=== PATIENT | male | born 1940 | race Caucasian/White ===

== ENCOUNTER 2018-01-26 12:05 | Inpatient (IN) | payer OTHER, BC ==
[~2018-01-26] VITALS: Ht 177.8 cm; Wt 78.6 kg
[~2018-01-26 12:05] MED LIST: ATENOLOL25 MG PO; ATORVASTATIN CA10 MG PO; AVINZA60 MG PO; CARDIZEM CD180 MG PO; CARTIA XT120 MG PO; CIALIS20 MG PO; CLOPIDOGREL75 MG PO; CRANBERRY PLUS1 EACH PO; DIGITEK250 MC2 PO; DURICEF500 MG PO; ELIQUIS5 MG PO; ELOCON 0.1% CRE15 GM TP; ENDOCET 5-3251 EACH PO; FISH OIL CONC1 EACH PO; GENTLE LAXATIVE5 M1 PO; KADIAN60 MG PO; KENALOG,ARISTOC80 GM TP; LAXATIVE5 M1 PO; LIPITOR10 MG PO; MINOCYCLINE HC100 M1 PO; MIRALAX255 GM PO; NEXIUM40 MG PO; PROBIOTIC & AC1 EACH PO; PROMETHAZINE V240 ML PO; QUININE SULFAT324 MG PO; REFRESH TEARS15 ML BOTH EYES; STOOL SOFTENER100 M1 PO; STOOL SOFTENER100 MG PO; SYNALAR 0.025%60 GM TP; TENORMIN25 MG PO; TRIAMCINOLONE A15 GM TP; VALIUM5 MG PO; VITAMIN D32000 UNI1 PO
[2018-01-26 12:50] LABS: BASOPHIL (%) 0.4 % (0-1); BASOPHIL COUNT 0.1 K/uL (0-0.1); EOSINOPHIL (%) 0.2 % (0-5); HEMATOCRIT 37.2 % (38.0-50.0); HEMOGLOBIN 13.1 G/DL (12.5-16.6); IMMATURE GRANULOCYTE (%) 0.9 % (0.0-0.7); LYMPHOCYTE (%) 6.2 % (15-42); LYMPHOCYTE COUNT 0.8 K/uL (1.0-2.8); MCH 33.7 PG (29.0-34.0); MCHC 35.2 G/DL (30.0-36.0); MCV 95.6 FL (86-99); MONOCYTE (%) 8.5 % (3-12); NEUTROPHIL (%) 83.8 % (45-76); NEUTROPHIL COUNT 10.3 K/uL (1.8-6.4); PLATELET COUNT 192 K/uL (156-360); RBC DIS.WIDTH-CV 13.7 % (11.8-14.6); RBC DIS.WIDTH-SD 47.6 % (39-53); RED BLOOD COUNT 3.89 M/uL (4.00-5.50); WHITE BLOOD COUNT 12.3 K/uL (4.1-10.2)
[2018-01-26 12:51] LABS: PCO2 33 mm Hg (35-45); PO2 75 mm Hg (80-100); pH 7.44 (7.35-7.45)
[2018-01-26 12:52] LABS: BASE EXCESS -1.1 mEq/L (-3 to +3); BICARBONATE 22.4 mEq/L (22-26); CARBOXY HGB 3.8 % (0-5); COMMENTS - BLOOD GASES A+C+; DEVICE NRBR; FI02 100 %; MECHANICAL RATE 18 resp/min; O2 FLOW 15 L/MIN; SITE RR
[2018-01-26 12:58] LABS: CHLORIDE 102 mEq/L (99-109); POTASSIUM 4.7 mEq/L (3.7-5.4); SODIUM 135 mEq/L (136-147)
[2018-01-26 13:00] LABS: GLUCOSE 135 mg/dL (70-99)
[2018-01-26 13:04] LABS: CREATININE 1.1 mg/dL (0.6-1.3); GFR ESTIMATE (CALCULATED) > 59 mL/min/ (58.99-99999); UREA NITROGEN (BUN) 29 mg/dL (9-23)
[2018-01-26 13:10] LABS: TROP-I INTERPRETATION NEGATIVE
[2018-01-26] MEDS ORDERED: TYLENOL EXTRA500 MG PO (14:36)
[2018-01-26] MEDS ORDERED: LASIX40 MG PO (14:37)
[2018-01-26] MEDS ORDERED: SYNTHROID50 MCG PO (14:37)
[2018-01-26] MEDS ORDERED: CORDARONE200 MG PO (14:37)
[2018-01-26] MEDS ORDERED: BENADRYL ALLERG25 MG PO (14:39)
[2018-01-26] MEDS ORDERED: APRODINE TABLE1 EACH PO (14:39)
[2018-01-26] MEDS ORDERED: CERAVE453 GM TP (14:40)
[2018-01-26 15:15] VITALS: BP 114/63
[2018-01-26 15:26] VITALS: BP 114/63
[2018-01-26 19:09] LABS: TROP-I INTERPRETATION NEGATIVE; TROPONIN-I 0.08 ng/mL (0.0-0.30)
[2018-01-26 19:46] VITALS: BP 106/64
[2018-01-26 23:10] VITALS: BP 96/55
[2018-01-27 04:05] VITALS: BP 92/55
[2018-01-27 07:46] VITALS: BP 99/55
[2018-01-27 09:25] LABS: PCO2 35 mm Hg (35-45); PO2 34 mm Hg (80-100)
[2018-01-27 09:26] LABS: O2 SATURATION (CALCULATED) 70.8 % (95-99)
[2018-01-27 09:27] LABS: BASE EXCESS 4.2 mEq/L (-3 to +3); BICARBONATE 27.3 mEq/L (22-26); CARBOXY HGB 3.2 % (0-5); METHEMOGLOBIN 1.1 % (0-1.5)
[2018-01-27 09:28] LABS: COMMENTS - BLOOD GASES A+C+; DEVICE HFNC; O2 FLOW 15 L/MIN; SITE RR; TOTAL RESP RATE 22 resp/min
[2018-01-27 12:21] VITALS: BP 94/57
[2018-01-27 16:56] VITALS: BP 97/59
[2018-01-27 21:02] VITALS: BP 97/57
[2018-01-28 01:08] VITALS: BP 99/58
[2018-01-28 05:16] VITALS: BP 107/56
[2018-01-28 05:52] LABS: BASOPHIL (%) 0.1 % (0-1); EOSINOPHIL (%) 0 % (0-5); HEMATOCRIT 39.3 % (38.0-50.0); HEMOGLOBIN 13.5 G/DL (12.5-16.6); IMMATURE GRANULOCYTE (%) 0.6 % (0.0-0.7); LYMPHOCYTE (%) 5.2 % (15-42); LYMPHOCYTE COUNT 0.8 K/uL (1.0-2.8); MCH 32.5 PG (29.0-34.0); MCHC 34.4 G/DL (30.0-36.0); MCV 94.7 FL (86-99); MONOCYTE (%) 2.7 % (3-12); MONOCYTE COUNT 0.4 K/uL (0-0.8); NEUTROPHIL (%) 91.4 % (45-76); NEUTROPHIL COUNT 14.6 K/uL (1.8-6.4); PLATELET COUNT 227 K/uL (156-360); RBC DIS.WIDTH-CV 13.2 % (11.8-14.6); RBC DIS.WIDTH-SD 45.7 % (39-53); RED BLOOD COUNT 4.15 M/uL (4.00-5.50); WHITE BLOOD COUNT 15.9 K/uL (4.1-10.2)
[2018-01-28 06:18] LABS: CHLORIDE 95 MEQ/L (99-109); CREATININE 0.9 MG/DL (0.6-1.3); GFR ESTIMATE (CALCULATED) > 59 mL/min/ (58.99-99999); GLUCOSE 162 mg/dL (70-99); POTASSIUM 4.3 MEQ/L (3.7-5.4); SODIUM 133 MEQ/L (136-147); UREA NITROGEN (BUN) 34 mg/dL (9-23)
[2018-01-28 07:13] VITALS: BP 105/67
[2018-01-28 11:45] VITALS: BP 95/58
[2018-01-28 15:27] VITALS: BP 119/74
[2018-01-28 21:28] VITALS: BP 107/82
[2018-01-29 00:29] VITALS: BP 104/62
[2018-01-29 05:33] VITALS: BP 109/62
[2018-01-29 05:39] LABS: BASOPHIL (%) 0.1 % (0-1); EOSINOPHIL (%) 0 % (0-5); HEMOGLOBIN 13.1 G/DL (12.5-16.6); IMMATURE GRANULOCYTE (%) 1.7 % (0.0-0.7); LYMPHOCYTE COUNT 0.5 K/uL (1.0-2.8); MCH 32.6 PG (29.0-34.0); MCHC 34.5 G/DL (30.0-36.0); MCV 94.5 FL (86-99); MONOCYTE (%) 3.8 % (3-12); MONOCYTE COUNT 0.9 K/uL (0-0.8); NEUTROPHIL (%) 92.4 % (45-76); NEUTROPHIL COUNT 20.4 K/uL (1.8-6.4); PLATELET COUNT 183 K/uL (156-360); RBC DIS.WIDTH-CV 13.2 % (11.8-14.6); RBC DIS.WIDTH-SD 45.8 % (39-53); RED BLOOD COUNT 4.02 M/uL (4.00-5.50); WHITE BLOOD COUNT 22.1 K/uL (4.1-10.2)
[2018-01-29 06:05] LABS: CHLORIDE 96 MEQ/L (99-109); CREATININE 0.7 MG/DL (0.6-1.3); GFR ESTIMATE (CALCULATED) > 59 mL/min/ (58.99-99999); GLUCOSE 164 mg/dL (70-99); POTASSIUM 4.2 MEQ/L (3.7-5.4); SODIUM 133 MEQ/L (136-147); UREA NITROGEN (BUN) 35 mg/dL (9-23)
[2018-01-29 07:06] VITALS: BP 100/56
[2018-01-29 11:22] VITALS: BP 102/63
[2018-01-29 20:57] VITALS: BP 105/68
[2018-01-30] VITALS (14 sets, daily range): BP systolic 82–128; BP diastolic 54–94
[2018-01-30 05:30] LABS: BASOPHIL (%) 0.1 % (0-1); EOSINOPHIL (%) 0 % (0-5); HEMATOCRIT 36.2 % (38.0-50.0); HEMOGLOBIN 12.4 G/DL (12.5-16.6); LYMPHOCYTE (%) 2.3 % (15-42); LYMPHOCYTE COUNT 0.4 K/uL (1.0-2.8); MCH 32.6 PG (29.0-34.0); MCHC 34.3 G/DL (30.0-36.0); MCV 95.3 FL (86-99); MONOCYTE (%) 3.5 % (3-12); MONOCYTE COUNT 0.7 K/uL (0-0.8); NEUTROPHIL (%) 93.1 % (45-76); RBC DIS.WIDTH-CV 13.8 % (11.8-14.6); RBC DIS.WIDTH-SD 47.8 % (39-53); WHITE BLOOD COUNT 18.3 K/uL (4.1-10.2)
[2018-01-30 05:40] LABS: CHLORIDE 96 MEQ/L (99-109); CREATININE 0.8 MG/DL (0.6-1.3); GFR ESTIMATE (CALCULATED) > 59 mL/min/ (58.99-99999); GLUCOSE 171 mg/dL (70-99); POTASSIUM 4.3 MEQ/L (3.7-5.4); SODIUM 134 MEQ/L (136-147); UREA NITROGEN (BUN) 34 mg/dL (9-23)
[2018-01-30 05:42] LABS: PLAT.SUFFICIENCY DECREASED
[2018-01-30 05:50] LABS: PLATELET COUNT 125 K/uL (156-360)
[2018-01-30 14:57] LABS: HIGH-SENS C-REACTIVE PROTEIN > 8.00 MG/DL (0.02-0.20)
[2018-01-31] VITALS (24 sets, daily range): BP systolic 91–134; BP diastolic 62–94
[2018-01-31 05:44] LABS: HEMATOCRIT 41.6 % (38.0-50.0); MCH 32.3 PG (29.0-34.0); MCHC 33.7 G/DL (30.0-36.0); MCV 96.1 FL (86-99); PLATELET COUNT 157 K/uL (156-360); RBC DIS.WIDTH-CV 13.9 % (11.8-14.6); RBC DIS.WIDTH-SD 49.3 % (39-53); RED BLOOD COUNT 4.33 M/uL (4.00-5.50); WHITE BLOOD COUNT 21.2 K/uL (4.1-10.2)
[2018-01-31 06:30] LABS: CHLORIDE 99 MEQ/L (99-109); CREATININE 0.8 MG/DL (0.6-1.3); GFR ESTIMATE (CALCULATED) > 59 mL/min/ (58.99-99999); GLUCOSE 187 mg/dL (70-99); MAGNESIUM 2.6 mg/dl (1.3-2.7); PHOSPHORUS 2.9 mg/dL (2.5-4.9); POTASSIUM 4.6 MEQ/L (3.7-5.4); SODIUM 139 MEQ/L (136-147); UREA NITROGEN (BUN) 37 mg/dL (9-23)
[2018-01-31 14:51] LABS: COMMENTS - BLOOD GASES A+C+; DEVICE HEATED HIFLO NC; FI02 100 %; O2 FLOW 45 L/MIN; PCO2 38 mm Hg (35-45); PO2 43 mm Hg (80-100); SITE RR; pH 7.49 (7.35-7.45)
[2018-01-31 14:52] LABS: BASE EXCESS 5.4 mEq/L (-3 to +3); CARBOXY HGB 2.6 % (0-5)
[2018-02-01] VITALS (24 sets, daily range): BP systolic 87–140; BP diastolic 53–95
[2018-02-01 05:24] LABS: BASOPHIL (%) 0.5 % (0-1); BASOPHIL COUNT 0.1 K/uL (0-0.1); EOSINOPHIL (%) 0 % (0-5); HEMATOCRIT 41.8 % (38.0-50.0); HEMOGLOBIN 13.6 G/DL (12.5-16.6); IMMATURE GRANULOCYTE (%) 2.3 % (0.0-0.7); LYMPHOCYTE (%) 2.8 % (15-42); LYMPHOCYTE COUNT 0.5 K/uL (1.0-2.8); MCH 32.4 PG (29.0-34.0); MCHC 32.5 G/DL (30.0-36.0); MCV 99.5 FL (86-99); MONOCYTE (%) 3.5 % (3-12); MONOCYTE COUNT 0.6 K/uL (0-0.8); NEUTROPHIL (%) 90.9 % (45-76); NEUTROPHIL COUNT 15.7 K/uL (1.8-6.4); PLATELET COUNT 128 K/uL (156-360); RBC DIS.WIDTH-CV 14.2 % (11.8-14.6); RBC DIS.WIDTH-SD 50.9 % (39-53); WHITE BLOOD COUNT 17.2 K/uL (4.1-10.2)
[2018-02-01 06:17] LABS: ALBUMIN 2.8 G/DL (3.2-4.8); ALKALINE PHOSPHATASE 151 IU/L (3-129); ALT (GPT) 37 IU/L (3-49); AST (GOT) 35 IU/L (2-34); CHLORIDE 102 MEQ/L (99-109); GFR ESTIMATE (CALCULATED) > 59 mL/min/ (58.99-99999); GLUCOSE 224 mg/dL (70-99); MAGNESIUM 2.6 mg/dl (1.3-2.7); POTASSIUM 4.7 MEQ/L (3.7-5.4); SODIUM 138 MEQ/L (136-147); TOTAL BILIRUBIN 1.3 MG/DL (0.0-1.0); TOTAL PROTEIN 5.9 G/DL (6.4-8.3); UREA NITROGEN (BUN) 44 mg/dL (9-23)
[2018-02-01 06:21] LABS: PHOSPHORUS 4.7 mg/dL (2.5-4.9)
[2018-02-01 22:55] LABS: Heparin Induced Plt Ab Negative (Negative)
[2018-02-02] VITALS (24 sets, daily range): BP systolic 92–129; BP diastolic 57–83
[2018-02-02 05:50] LABS: BASOPHIL (%) 0.3 % (0-1); BASOPHIL COUNT 0.1 K/uL (0-0.1); EOSINOPHIL (%) 0 % (0-5); HEMATOCRIT 43.5 % (38.0-50.0); HEMOGLOBIN 14.1 G/DL (12.5-16.6); IMMATURE GRANULOCYTE (%) 2.5 % (0.0-0.7); LYMPHOCYTE (%) 2.9 % (15-42); LYMPHOCYTE COUNT 0.5 K/uL (1.0-2.8); MCH 32.3 PG (29.0-34.0); MCHC 32.4 G/DL (30.0-36.0); MCV 99.8 FL (86-99); MONOCYTE (%) 4.1 % (3-12); MONOCYTE COUNT 0.7 K/uL (0-0.8); NEUTROPHIL (%) 90.2 % (45-76); PLATELET COUNT 154 K/uL (156-360); RBC DIS.WIDTH-SD 51.3 % (39-53); RED BLOOD COUNT 4.36 M/uL (4.00-5.50); WHITE BLOOD COUNT 17.7 K/uL (4.1-10.2)
[2018-02-02 06:00] LABS: CHLORIDE 102 MEQ/L (99-109); CREATININE 0.9 MG/DL (0.6-1.3); GFR ESTIMATE (CALCULATED) > 59 mL/min/ (58.99-99999); GLUCOSE 186 mg/dL (70-99); POTASSIUM 4.5 MEQ/L (3.7-5.4); SODIUM 141 MEQ/L (136-147); UREA NITROGEN (BUN) 51 mg/dL (9-23)
[2018-02-03] VITALS (13 sets, daily range): BP systolic 92–123; BP diastolic 65–79
[2018-02-03 06:00] LABS: BASOPHIL (%) 0.2 % (0-1); EOSINOPHIL (%) 0 % (0-5); HEMATOCRIT 43.9 % (38.0-50.0); HEMOGLOBIN 14.4 G/DL (12.5-16.6); IMMATURE GRANULOCYTE (%) 2.7 % (0.0-0.7); LYMPHOCYTE COUNT 0.3 K/uL (1.0-2.8); MCH 32.6 PG (29.0-34.0); MCHC 32.8 G/DL (30.0-36.0); MCV 99.3 FL (86-99); MONOCYTE (%) 3.1 % (3-12); MONOCYTE COUNT 0.5 K/uL (0-0.8); NEUTROPHIL COUNT 15.5 K/uL (1.8-6.4); PLATELET COUNT 118 K/uL (156-360); RBC DIS.WIDTH-CV 13.7 % (11.8-14.6); RBC DIS.WIDTH-SD 50.5 % (39-53); RED BLOOD COUNT 4.42 M/uL (4.00-5.50); WHITE BLOOD COUNT 16.9 K/uL (4.1-10.2)
[2018-02-03 06:20] LABS: CHLORIDE 103 MEQ/L (99-109); CREATININE 0.8 MG/DL (0.6-1.3); GFR ESTIMATE (CALCULATED) > 59 mL/min/ (58.99-99999); GLUCOSE 190 mg/dL (70-99); POTASSIUM 4.5 MEQ/L (3.7-5.4); SODIUM 144 MEQ/L (136-147); UREA NITROGEN (BUN) 47 mg/dL (9-23)
[2018-02-03 07:13] LABS: UFH SRA Result Negative (Negative)
[2018-02-04 02:02] VITALS: BP 119/76
[2018-02-04 05:47] LABS: BASOPHIL (%) 0.2 % (0-1); EOSINOPHIL (%) 0 % (0-5); HEMATOCRIT 42.3 % (38.0-50.0); IMMATURE GRANULOCYTE (%) 1.6 % (0.0-0.7); LYMPHOCYTE (%) 1.3 % (15-42); LYMPHOCYTE COUNT 0.3 K/uL (1.0-2.8); MCH 32.7 PG (29.0-34.0); MCHC 33.1 G/DL (30.0-36.0); MCV 98.8 FL (86-99); MONOCYTE COUNT 0.6 K/uL (0-0.8); NEUTROPHIL (%) 93.9 % (45-76); NEUTROPHIL COUNT 17.9 K/uL (1.8-6.4); PLATELET COUNT 102 K/uL (156-360); RBC DIS.WIDTH-CV 13.7 % (11.8-14.6); RBC DIS.WIDTH-SD 49.7 % (39-53); RED BLOOD COUNT 4.28 M/uL (4.00-5.50); WHITE BLOOD COUNT 19.1 K/uL (4.1-10.2)
[2018-02-04 06:13] LABS: CHLORIDE 104 MEQ/L (99-109); CREATININE 0.8 MG/DL (0.6-1.3); GFR ESTIMATE (CALCULATED) > 59 mL/min/ (58.99-99999); GLUCOSE 213 mg/dL (70-99); POTASSIUM 4.4 MEQ/L (3.7-5.4); SODIUM 144 MEQ/L (136-147); UREA NITROGEN (BUN) 43 mg/dL (9-23)
[2018-02-04 06:22] LABS: PHOSPHORUS 2.9 mg/dL (2.5-4.9)
[2018-02-04 08:01] VITALS: BP 119/74
[2018-02-04 10:02] VITALS: BP 99/68
[2018-02-04 17:39] VITALS: BP 125/59
[2018-02-05 08:32] VITALS: BP 00/00
[2018-02-08 16:32] LABS: Neutrophil Cytoplasmic Aby Negative
== END 2018-02-06 03:21 | DRG 205 ==
LOC: EME 12:05 → EDOF 14:05 → 4EAST 14:05 → ENRESERV 14:13 → 4EAST 15:04 → ENRESERV 01-30 10:41 → 4EAST 01-30 10:41 → ENRESERV 01-30 11:16 → 4WEST 01-30 11:40 → CANRESERV 02-03 13:14 → ENRESERV 02-04 12:45 → 4WEST 02-04 15:23 → ENRESERVTM 02-04 15:28 → 5EAST 02-04 17:19
PROVIDERS: Emergency Medicine; Family Medicine; Internal Medicine; Internal Medicine Critical Care Medicine; Internal Medicine Pulmonary Disease; Specialist
PROC: 5A09357 Assistance with Respiratory Ventilation, Less than 24 Consecutive Hours, Continuous Positive Airway Pressure (ICD-10-PCS; principal; 2018-01-30)
DX: J70.3 Chronic drug-induced interstitial lung disorders (principal); T46.2X5A Adverse effect of other antidysrhythmic drugs, initial encounter; J18.9 Pneumonia, unspecified organism; Z51.5 Encounter for palliative care; J96.01 Acute respiratory failure with hypoxia; I48.0 Paroxysmal atrial fibrillation; I48.2 Chronic atrial fibrillation; I27.20 Pulmonary hypertension, unspecified; D69.6 Thrombocytopenia, unspecified; R04.2 Hemoptysis; I95.9 Hypotension, unspecified; E03.9 Hypothyroidism, unspecified; E78.5 Hyperlipidemia, unspecified; I45.10 Unspecified right bundle-branch block; K21.9 Gastro-esophageal reflux disease without esophagitis; M54.5 Low back pain; G89.29 Other chronic pain; R73.9 Hyperglycemia, unspecified; M19.90 Unspecified osteoarthritis, unspecified site; Z95.3 Presence of xenogenic heart valve; Z79.01 Long term (current) use of anticoagulants; Z87.891 Personal history of nicotine dependence
CPT/HCPCS: 36415; 36600; 71045; 71046; 71250; 74018; 80048; 80053; 82948; 83735; 83880; 83880 GA; 84100; 84145 90; 84484; 85025; 85027; 85610; 85651; 85730; 86021 90; 86022 90; 86038; 86141; 86430; 87070; 87205; 87449; 87641; 92610 GN; 93005; 93306; 94002; 94799; 99281; 99284; J1644; J1815; J1940; J1956; J2060; J2270; J2930; S0028